=== PATIENT | female | born 1950 | race African-American/Black ===

== ENCOUNTER 2016-11-22 13:05 | Emergency (ER) | payer MEDICAID, OTHER ==
[2016-11-22] MEDS ORDERED: ASPIRIN 81 MG CHEW PO STA (13:29)
[2016-11-22] MEDS ORDERED: ACETAMINOPHEN IV (For NPO) 1,000 MG in EMPTY BAG 1 BAG IVPB ONE (13:30)
--- NOTE | 2016-11-22 14:29 | ED ---
Chest Pain HPI - General Chief Complaint: Chest Pain Stated Complaint: Chest pain Time Seen by Provider: 11/22/16 13:19 Source: patient, EMS Mode of arrival: EMS Limitations: no limitations - History of Present Illness Initial Comments: 66-year-old -[place] female presents with a complaint of some chest pain. This is a left-sided stabbing pleuritic type of pain that radiates into her left arm. Onset occurred at approximately 9:30 AM today. She has had some slight shortness of breath. She does complain of some pain in her right leg behind her right knee. This is been somewhat chronic and she has been told that she may need a knee replacement previously. She also has a history of DVT 5-6 years ago. She denies any swelling of her legs. [facility] She has been there for approximately 4 days. She' s been off of heroin for 3-4 days. She apparently abuses heroin nasally. Her last stress test was in 2015 and her last heart catheterization was in 2014 and these are purportedly negative. She did take an aspirin this morning. She relates that she has had similar chest pain symptoms with heroin withdrawal in the past. No other complaints or modifying factors. - Related Data Home Medications Medication Instructions Recorded Confirmed Acetaminophen Tab [Tylenol Tab] 650 mg PO Q4H PRN 11/22/16 11/22/16 Buprenorphine HCl [Subutex] 4 mg SL DAILY 11/22/16 11/22/16 Calcium Carb-Mag Carb-Folic 1 tab PO TID PRN 11/22/16 11/22/16 [Magnebind 400 Rx] Chlorpheniramine Maleate 4 mg PO Q4H PRN 11/22/16 11/22/16 [Chlor-Trimeton] Hyoscyamine Sulfate [Levsin] 0.125 mg SL QID PRN 11/22/16 11/22/16 Ibuprofen [Motrin] 600 mg PO Q6H 11/22/16 11/22/16 Loperamide [Imodium] 4 mg PO QID PRN 11/22/16 11/22/16 Multivitamins, Thera [Multivitamin] 1 tab PO DAILY 11/22/16 11/22/16 Ondansetron HCl [Zofran] 8 mg PO Q6H PRN 11/22/16 11/22/16 Ondansetron [Zofran] 2 mg IM Q6H PRN 11/22/16 11/22/16 Thiamine [Vitamin B-1] 100 mg PO DAILY 11/22/16 11/22/16 Trimethobenzamide [Tigan] 200 mg IM Q6HR PRN 11/22/16 11/22/16 Trimethobenzamide [Tigan] 300 mg PO Q6H PRN 11/22/16 11/22/16 busPIRone HCl [Buspar] 10 mg PO TID PRN 11/22/16 11/22/16 cloNIDine HCL [Catapres] 0.1 mg PO Q4H 11/22/16 11/22/16 traZODone HCL 50 - 150 mg PO HS 11/22/16 11/22/16 Allergies Allergy/AdvReac Type Severity Reaction Status Date / Time ketorolac [From Toradol] Allergy Unknown Unknown Verified 11/22/16 13:33 nitroglycerin Allergy Unknown Unknown Verified 11/22/16 13:33 Review of Systems ROS Statement: Those systems with pertinent positive or pertinent negative responses have been documented in the HPI. ROS Other: All systems not noted in ROS Statement are negative. Past Medical History Past Medical History: COPD Additional Past Medical History / Comment(s): Hep C History of Any Multi-Drug Resistant Organisms: None Reported Past Surgical History: Appendectomy, Tonsillectomy Additional Past Surgical History / Comment(s): Cyst removed on Left Ovary Past Psychological History: Bipolar, Schizophrenia Smoking Status: Current every day smoker Past Alcohol Use History: None Reported Past Drug Use History: Cocaine, Heroin General Exam - General Exam Comments Initial Comments: GENERAL: The patient is well nourished and well hydrated. VITAL SIGNS: Heart rate, blood pressure, respiratory rate reviewed as recorded in nurse's notes. EYES: Pupils are round and reactive. Extraocular movements are intact. No conjunctival / lid redness or swelling. ENT: No external evidence of injury, swelling, or ecchymosis. Airway is patent. Throat is clear. NECK: Nontender. No swelling or evidence of injury. No subcutaneous emphysema. Trachea is midline. No thyroid mass. HEART: Regular rate and rhythm. Good peripheral pulses. LUNGS/CHEST: Breath sounds clear and equal bilaterally. No rales, rhonchi, or wheezes. No ecchymosis, subcutaneous emphysema, or tenderness. ABDOMEN: Abdomen soft without tenderness. No palpable masses or organomegaly. No peritoneal signs. No abdominal wall swelling or ecchymosis. EXTREMITIES: There is mild tenderness posterior to the right knee. There is no identifiable swelling. There is excellent range of motion. Normal muscle tone and function. No thoracolumbar tenderness. NEUROLOGIC: Sensation is grossly intact. Cranial nerve exam reveals face is symmetrical, tongue is midline, speech is clear. SKIN: No abrasions or ecchymosis is noted. No induration or masses noted. PSYCHIATRIC: Alert and oriented. Appropriate behavior and judgment. Limitations: no limitations Course Vital Signs 11/22/16 11/22/16 11/22/16 13:13 15:51 17:51 Temperature 98.5 F Pulse Rate 73 51 L 68 Respiratory 18 17 18 Rate Blood Pressure 93/64 110/63 112/62 O2 Sat by Pulse 94 L 98 97 Oximetry Chest Pain [facility] The patient was seen and examined. All diagnostics were reviewed. The EKG was done and this shows a sinus bradycardia at a rate of 55. There is some diffusely flattened T waves. There is some mild T-wave inversions in lead V4 and V5 without any comparison available. There is evidence of some left ventricular hypertrophy. The CO interval is 166, QRS duration is 74, and QTC intervals 415. An IV was started she is placed on the electronic device monitor. No ectopy is identified. The patient also had some Ofirmev given for pain. An additional aspirin is also given. Toradol and nitroglycerin were avoided due to ALLERGIES. The chest x-ray did not show any acute process. The laboratory is reviewed and the d-dimer is elevated. A computed tomography scan of the thorax was done which shows some slight atelectasis but no evidence of pulmonary embolism. The patient had a lower extremity venous Doppler done bilaterally which does not show any evidence of DVT. The patient continually requests narcotic pain medication. His felt as though this is contraindicated as she is currently going through rehabilitation for heroin abuse. A repeat troponin was done. This does not show any elevation. Is felt as though her symptoms are consistent with a pleuritis. It is felt as though she is stable for discharge back to rehab. A long discussion was held regarding need to avoid further narcotic medications and she seems to understand. She leaves in no identifiable distress. Disposition Clinical Impression: Pleuritic chest pain, Right leg pain, Heroin abuse, Pleuritis Disposition: OTHER INSTITUTION NOT DEFINED Condition: Fair Instructions: Chest Pain (ED), Pleurisy (ED) Additional Instructions: Please use Motrin, Tylenol, or aspirin as needed for pain. Referrals: None,Stated [Primary Care Provider] - 1-2 days Time of Disposition: 19:34 - Out of Hospital Transfer - Req. Specs Out of Hospital Transfer - Requested Specifics: Other Non-Acute (Transferred back to [place] re[facility] facility)
[2016-11-22 14:51] LABS: Basophils % (A) 1 %; CH 27.9; CHCM 31.5; Eosinophils # (A) 0.2 k/uL (0-0.7); Eosinophils % (A) 3 %; HCT 34.5 % (34.0-46.0); HDW 2.47; HGB 10.6 gm/dL (11.4-16.0); Luc # (Auto) 0.15; Luc % (Auto) 3; Lymphocytes # (A) 1.6 k/uL (1.0-4.8); Lymphocytes % (A) 34 %; MCH 27.4 pg (25.0-35.0); MCHC 30.7 g/dL (31.0-37.0); MCV 89.1 fL (80.0-100.0); Mean Platelet Volume 7.3; Monocytes # (A) 0.5 k/uL (0-1.0); Monocytes % (A) 10 %; Neutrophils # (A) 2.3 k/uL (1.3-7.7); Neutrophils % (A) 49 %; RBC 3.87 m/uL (3.80-5.40); RDW 15.7 % (11.5-15.5); WBC 4.8 k/uL (3.8-10.6); WBC (Perox) 4.89
[2016-11-22 15:00] LABS: ALT 21 U/L (9-52); AST 20 U/L (14-36); Alkaline Phosphatase 75 U/L (38-126); Anion Gap 8 mmol/L; Blood Urea Nitrogen 14 mg/dL (7-17); Calcium 10.2 mg/dL (8.4-10.2); Carbon Dioxide 29 mmol/L (22-30); Chloride 102 mmol/L (98-107); Glucose 96 mg/dL (74-99); Magnesium 2.1 mg/dL (1.6-2.3); Non-African American GFR(MDRD) 60 (>60 ml/min/1.73 sqM); Potassium 4.3 mmol/L (3.5-5.1); Sodium 139 mmol/L (137-145); Total Bilirubin 0.7 mg/dL (0.2-1.3); Total Protein 7.2 g/dL (6.3-8.2)
[2016-11-22 15:06] LABS: Partial Thromboplastin Time 22.5 sec (22.0-30.0); Prothrombin Time 10.4 sec (9.0-12.0)
--- NOTE | 2016-11-22 15:09 | XR ---
EXAMINATION TYPE: XR chest 2V DATE OF EXAM: 11/22/2016 2:56 PM COMPARISON: NONE INDICATION: Chest pain TECHNIQUE: Frontal and lateral views of the chest are obtained. FINDINGS: The heart size is normal. The pulmonary vasculature is normal. The lungs are clear. Hiatal hernia is evident. No significant interval changes evident. Note is made of anterior cervical fusion. IMPRESSION: 1. No acute pulmonary process.
[2016-11-22 15:25] LABS: Creatine Kinase MB 0.7 ng/mL (0.0-2.4); Troponin I 0.016 ng/mL (0.000-0.034)
[2016-11-22] MEDS ORDERED: RX INFO: IV CONTRAST WAS GIVEN 1 EACH MISC MISCELLANE PRN (15:39)
--- NOTE | 2016-11-22 16:00 | US ---
EXAMINATION TYPE: US venous doppler duplex LE BI DATE OF EXAM: 11/22/2016 3:46 PM COMPARISON: NONE CLINICAL HISTORY: Pain. SIDE PERFORMED: Bilateral VESSELS IMAGED: External Iliac Vein (EIV) Common Femoral Vein Deep Femoral Vein Greater Saphenous Vein * Femoral Vein Popliteal Vein Small Saphenous Vein * Proximal Calf Veins (* superficial vessels) TECHNOLOGIST IMPRESSION: wnl Right Leg: No evidence of DVT Left Leg: No evidence of DVT IMPRESSION: 1. No ultrasound evidence of deep venous thrombosis.
--- NOTE | 2016-11-22 17:41 | CT ---
EXAMINATION TYPE: CT angio chest DATE OF EXAM: 11/22/2016 5:34 PM COMPARISON: 04/13/2011 HISTORY: Pt states of chest pains. CT DLP: 553.0 mGycm Automated exposure control for dose reduction was used. CONTRAST: CTA scan of the thorax is performed with IV Contrast, patient injected with 80 mL of Omnipaque 350, p ulmonary embolism protocol. There are Three-D postprocessed images.. FINDINGS: &&&&&&&& I see no filling defects in the pulmonary arteries. IMPRESSION: NO EVIDENCE OF PULMONARY EMBOLISM. MINIMAL SUBSEGMENTAL ATELECTASIS AT THE LUNG BASES. NO ADVERSE CEFERINO NGE COMPARED TO OLD EXAM. LARGE HIATAL HERNIA.
[2016-11-22] MEDS ORDERED: ASPIRIN 325 MG TAB PO STA (19:39)
[2016-11-22 19:44] VITALS: BP 128/67; PULSE 87; RESP 20; TEMP 98
== END 2016-11-22 19:49 | disposition other institution (70) ==
LOC: EC 13:05
DX: R09.1 Pleurisy (principal); F11.10 Opioid abuse, uncomplicated; M79.604 Pain in right leg; F17.200 Nicotine dependence, unspecified, uncomplicated; Z86.718 Personal history of other venous thrombosis and embolism; Z79.1 Long term (current) use of non-steroidal anti-inflammatories (NSAID); Z79.899 Other long term (current) drug therapy; Z88.5 Allergy status to narcotic agent; Z88.8 Allergy status to other drugs, medicaments and biological substances; Z86.19 Personal history of other infectious and parasitic diseases
CPT/HCPCS: 36415; 93005; 85379; 80053; 82550; 82553; 83735; 84484; 85025; 85610; 85730; 71020; 93970; 71275; 99285; 96365; Q9967; J0131